=== PATIENT | female | born 1945 | race Caucasian/White ===

== ENCOUNTER → 2019-11-14 | Outpatient (CLI) | payer OTHER, BC ==
[~2019-11-14] MED LIST: ADULT LOW DOSE81 MG PO; BYSTOLIC2.5 MG OR; CALCIUM 600 +1 EAC5 PO; CENTRUM SILVER1 EAC1 PO; CIPROFLOXACIN500 M1 PO; FLECAINIDE ACET50 M1 PO; FOSAMAX 70 MG T70 M1 OR; LOVENOX SC; PRADAXA150 MG OR; PRADAXA150 MG PO; RESTASIS1 EACH OP; SYNTHROID100 MCG OR; SYNTHROID112 MCG PO; TIKOSYN.5 PO; [UNRECOGNIZED DRUG - CODE] PO
== END ==
LOC: SJCVC 13:43
DX: I11.9 Hypertensive heart disease without heart failure (principal); R94.31 Abnormal electrocardiogram [ECG] [EKG]; I48.0 Paroxysmal atrial fibrillation; E78.00 Pure hypercholesterolemia, unspecified; Z82.49 Family history of ischemic heart disease and other diseases of the circulatory system; Z79.899 Other long term (current) drug therapy; Z87.891 Personal history of nicotine dependence

== ENCOUNTER → 2019-11-21 | Outpatient (CLI) | payer OTHER, BC | LOC: SJCVCIMAG 07:16 | DX: R00.0 Tachycardia, unspecified (principal); I48.91 Unspecified atrial fibrillation; I10 Essential (primary) hypertension; E78.5 Hyperlipidemia, unspecified; Z87.891 Personal history of nicotine dependence; Z79.899 Other long term (current) drug therapy ==

== ENCOUNTER → 2019-12-02 | Outpatient (CLI) | payer OTHER, BC | LOC: SJCVCIMAG 08:03 | PROVIDERS: ATTEND Internal Medicine Cardiovascular Disease | DX: Z01.810 Encounter for preprocedural cardiovascular examination (principal); I08.8 Other rheumatic multiple valve diseases; R00.1 Bradycardia, unspecified; I48.91 Unspecified atrial fibrillation ==

== ENCOUNTER 2019-12-05 06:47 | Observation (INO) | payer OTHER, BC ==
[~2019-12-05] VITALS: Ht 177.8 cm; Wt 86.2 kg
[2019-12-05] VITALS (12 sets, daily range): BP systolic 124–152; BP diastolic 68–88
[2019-12-05 07:44] LABS: HEMATOCRIT 37.6 % (37.0-47.0); HEMOGLOBIN 12.5 gm/dL (12.0-15.0); MCH 30.3 pg (26.0-34.0); MCHC 33.1 g/dL (28.0-37.0); MCV 91.3 fL (80.0-100.0); RBC 4.12 mil/uL (4.20-5.00); RDW 13.6 % (10.5-14.5); WBC 4.3 thou/uL (4.0-11.0)
[2019-12-05 07:53] LABS: APTT 35.2 Seconds (24.5-32.8); INR 1.1; PROTIME 10.8 Seconds (9.3-11.4)
[2019-12-05 07:56] LABS: ALBUMIN 3.5 g/dL (3.4-5.0); CALCIUM 8.8 mg/dL (8.5-10.1); CREATININE 0.8 mg/dL (0.6-1.0); POTASSIUM 3.7 mmol/L (3.5-5.1); TOTAL BILIRUBIN 0.3 mg/dL (0.2-1.0); TOTAL PROTEIN 7.6 g/dL (6.4-8.2)
--- NOTE | 2019-12-05 17:05 | NUR ---
PT CARE ASSUMED APPROX 0700. ASSESSMENTS CHARTED. PT DENIES PAIN AND SOA. VSS. ON POST PROCEDURE BEDREST AT THIS TIME. AT BEDSIDE. BOTH PT AND SPOUSE DENY QUESTIONS OR CONCERNS REGARDING POC. DR PATIÑO WAS PAGED REGARDING PT'S RETURN TO AFIB APPROX 1440. NO CALLBACK AT THIS TIME. NO DISTRESS NOTED.
--- NOTE | 2019-12-05 18:31 | NUR ---
PT AMBULATED WITHOUT ISSUE. URINARY CATH REMOVED AT 1800 PER ORDER. REMOVED WITHOUT ISSUE. PT AWARE TO DRINK PLENY OF WATER AND TO NOTIFY NURSING WHEN FIRST VOIDS.
[2019-12-06 00:52] VITALS: BP 119/52
[2019-12-06 04:45] VITALS: BP 133/53
--- NOTE | 2019-12-06 07:29 | NUR ---
patient progressed rapidly in her care plan. vital signs stable with patient having no complaints of pain or nausea. cath site c/d/i with pedal pulses equal bilateral. up multiple times with assistance incident free. patient is anxious for discharge. continue plan of care.
[2019-12-06 08:10] VITALS: BP 113/55
[2019-12-06 08:14] VITALS: BP 133/53
--- NOTE | 2019-12-06 09:18 | NUR ---
PT CARE ASSUMED APPROX 0700. ASSESSMENT CHARTED. PT DENIES PAIN AND SOA. RIGHT GROIN POST CATH SITE C/D/I. NO HEMATOMA. PT UP WITH STEADY GAIT. DISCHARGING AT THIS TIME. DISCHARGE EDUCATION COMPLETED WITH PT AND DR. EDUCATION REINFORCED BY THIS NURSE. PT AND SPOUSE DENY QUESTIONS OR CONCERNS REGARDING POST HOSPITAL CARES. IV OUT, TELE OFF. PT ESCORTED OFF THE UNIT AT THIS TIME WITH NURSING STAFF.
--- NOTE | 2019-12-06 15:53 | D ---
[facility] [place] [address] DISCHARGE SUMMARY Name: NOLA CASAREZ Room #: 207-P [facility] M.Hever#: [id number] Admission: 12/05/19 Attend Phys: Carlo Sosa MD Discharge: 12/06/19 Date of : 43 Report #: [id number] THIS REPORT FOR: cc: David Buenrostro MD, Christopher B. MD Couchonnal, Luis F. MD ~ THIS REPORT FOR: //name// CC: David Sosa DISCHARGE DIAGNOSES: 1. Paroxysmal atrial fibrillation. 2. Atrial flutter. 3. Atrial tachycardia. HISTORY OF PRESENT ILLNESS: The patient is a 73-year-old female with a history of atrial fibrillation and atrial flutter, who underwent prior atrial flutter ablation by Dr. Mccabe several years ago and has been on Tikosyn, but has been having breakthrough episodes. She is here for ablation. She underwent successful AFib ablation yesterday with isolation of the pulmonary veins. An EP study was then performed and showed that she had an atrial tachycardia that was arising from the right atrial appendage, which was also successfully ablated. We also performed a repeat atrial flutter ablation as there appeared to be slight area of reconnection. HOSPITAL COURSE: The patient did well overnight, but she did have an episode of atrial fibrillation lasting about an hour yesterday that terminated on its own. Today, she denies any chest pain, shortness of breath, PND, orthopnea, presyncope or syncope. PHYSICAL EXAMINATION HEART: Regular rate and rhythm. LUNGS: Clear to auscultation bilaterally. ABDOMEN: Soft, nontender. GENITOURINARY: Groin showed no significant bruising or hematoma. Her telemetry showed she was in sinus rhythm. As such, she was deemed stable for discharge home. She will continue with her home dose of Tikosyn and her anticoagulation. Discharge instructions were reviewed and she will see me back in 3 months. <ELECTRONICALLY SIGNED> By: Carlo Sosa MD 12/06/19 1553 [id number] Carlo Sosa MD /nt
--- NOTE | 2019-12-06 15:53 | P ---
[facility] [place] [address] PROCEDURE REPORT Name: NOLA CASAREZ Room #: 207-P [facility] Antonella M.RHever#: [id number] Admission: 12/05/19 Attend Phys: Carlo Sosa MD Discharge: 12/06/19 Date of : 43 Report #: [id number] THIS REPORT FOR: cc: David Buenrostro MD, Christopher B. MD Couchonnal, Luis F. MD ~ CC: David Sosa DATE OF SERVICE: 12/05/2019 AFIB, A-FLUTTER, AND ATRIAL TACHYCARDIA ABLATION PREOPERATIVE DIAGNOSES: 1. Atrial fibrillation. 2. Atrial flutter. POSTOPERATIVE DIAGNOSES: 1. Atrial fibrillation. 2. Atrial flutter. 3. Supraventricular tachycardia due to an atrial tachycardia arising from the right atrial appendage. HISTORY: The patient is a 73-year-old female with history of AFib, atrial flutter, status post atrial flutter ablation by Dr. Mccabe in 2010, who has been on Tikosyn and Pradaxa with increased AFib burden over the past several months, here for AFib and atrial flutter ablation. PROCEDURES PERFORMED: 1. Atrial fibrillation ablation, CPT code 65609. 2. Program stimulation pacing after IV drug infusion, CPT code 10155. 3. 3D mapping, CPT code 17965. 4. Intracardiac echo, CPT code 12833. 5. Focal ablation for atrial flutter, CPT code 31982. 6. Second pathway ablated, CPT code 84503. DESCRIPTION OF PROCEDURE: The patient was brought to the EP laboratory in a fasting and unsedated state and prepped and draped in a sterile fashion. I injected lidocaine at the right groin and obtained access to the right femoral vein x 3, placing an 8, 9 and 7-[place] short sheath using the modified Seldinger technique. Next, under fluoroscopy, a Decapolar catheter was easily placed in the coronary sinus for left atrial pacing and recording, an ICE catheter was placed into the right atrium. 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 Using intracardiac ultrasound, I created a 3D geometry using [employer]. 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 [facility] [address] [place] [address] PROCEDURE REPORT Name: NOLA CASAREZ Room #: 207-P [facility] Antonella Lou#: [id number] Admission: 12/05/19 Attend Phys: Carlo Sosa MD Discharge: 12/06/19 Date of : 43 Report #: [id number] At baseline, the patient was in sinus rhythm. Next, the patient was systemically heparinized and a transseptal was performing an SL1 sheath and a Lindside needle. This was straightforward and I was able to advance the SL1 sheath into the left superior pulmonary vein and then I exchanged this for the cryo sheath. Next, we used a Lasso catheter to create a 3D geometry of the left atrium, which showed evidence of connection of the 4 pulmonary veins. I then started by isolating the pulmonary veins. The left superior pulmonary vein underwent a 4-minute, followed by 3-minute freeze, which then showed the vein was isolated, the left inferior vein underwent two 4-minute freezes and the vein successfully isolated within 30 seconds of the second freeze. The right superior pulmonary vein underwent a single 4-minute freeze as it isolated within 38 seconds and the right inferior pulmonary vein underwent 2 freezes, each of 3 minutes duration and the vein isolated during the first freeze within 50 seconds. Next, using the Lasso catheter, I created a repeat voltage map and this showed that we had created a wide circumferential ablation of the pulmonary veins. I pulled the cryo sheath to the right atrium and a basic EP study was performed. Atrial burst pacing was performed and AV block was noted at 320 milliseconds. Single atrial extrastimuli did not induce any SVT. Next, an isoproterenol infusion was started at 2 mcg per minute and AV block was noted at 280 milliseconds. Atrial ERP was noted at 210 milliseconds at a [address] cycle length and with aggressive atrial burst pacing at 270 milliseconds, the patient went into an atrial tachycardia that appeared to be right-sided in nature. 3D MAPPING AND ABLATION OF THE RIGHT-SIDED ATRIAL TACHYCARDIA: Using the Lasso catheter, I was able to map this atrial tachycardia into the right atrial appendage. Placing the Lasso catheter at this site would result in termination of the tachycardia. Trying to re-induce the atrial tachycardia, I did put the person in AFib and the patient required a 200 joule cardioversion with voodoo of sinus rhythm. We continued testing and I then exchanged for a [employer] ThermoCool ablation catheter and performed a more detailed mapping in the right atrial appendage and appeared that at the medial side of the appendage, there was a focal atrial tachycardia arising from this location. Catheter manipulation at this site would result in termination of the tachycardia. Prior to ablation, I performed high voltage pacing from the appendage and there was no phrenic nerve capture. Ablation was then performed at 35 ladd and this resulted in rapid bursts of atrial tachycardia. I ablated throughout the medial region and also at the base of the appendage. This did result in the patient going into atrial fibrillation and atrial flutter and the patient required cardioversion. We continued testing on isoproterenol and we could no longer induce this atrial tachycardia arising from the appendage. [facility] [address] [place] [address] PROCEDURE REPORT Name: NOLA CASAREZ [id number] Admission: 12/05/19 Attend Phys: Carlo Sosa MD Discharge: 12/06/19 Date of : 43 Report #: [id number] ATRIAL FLUTTER ABLATION: Given that the patient had prior A-flutter ablation, we remapped the prior ablation site and there appeared to be a gap within lesion set. I performed additional ablation at 6 o'clock along the cavotricuspid isthmus and post-ablation, there was now evidence of bidirectional block with a transisthmus conduction time of 195 milliseconds. As such, we continued performing testing post-ablation and with aggressive atrial burst pacing down to 270 milliseconds, I could no longer induce AFib, atrial flutter or atrial tachycardia. As such, the procedure was concluded. Post-ablation, the patient remained in sinus rhythm with a sinus cycle length of 805 milliseconds, IL interval 170 milliseconds, QRS duration 80 milliseconds, QT interval 470 milliseconds. Using intracardiac ultrasound, I verified there was no pericardial effusion and then the patient received systemic protamine and once ACT was within acceptable range, catheters and sheaths were pulled and hemostasis was obtained. The patient awoke neurologically and hemodynamically intact. No complications and no significant bleeding. CONCLUSIONS: 1. Successful AFib ablation with wide circumferential ablation of the pulmonary veins. 2. Successful ablation of a focal atrial tachycardia arising from the right atrial appendage. 3. Successful atrial flutter ablation with evidence of bidirectional block. 4. No other inducible arrhythmias on or off isoproterenol. <ELECTRONICALLY SIGNED> By: Carlo Sosa MD 12/06/19 1553 1215 1405 Carlo Sosa MD /nt
--- NOTE | 2019-12-07 11:45 | EKG ---
[facility] [place] [address] ELECTROCARDIOGRAM REPORT Name: NOLA CASAREZ Room #: 207-[facility] M.R.#: [id number] Admission: 12/05/19 Attend Phys: Carlo Sosa MD Discharge: 12/06/19 Date of : 43 Report #: [id number] THIS REPORT FOR: cc: David Buenrostro MD, Christopher B. MD Couchonnal,Carlo lAejandra MD ~ THIS REPORT FOR: //name// [facility] Test Date: 2019-12-05 Test Time: 15:55:39 Pat Name: NOLA CASAREZ Department: Room: 207 P Gender: F [employer]: FRANCESCO : 1945 Requested By: Carlo Sosa Order Number: [id number] MD: Carlo Sosa Measurements Intervals Smith Rate: 119 P: AR: QRS: 37 QRSD: 67 T: 255 QT: 293 QTc: 413 Interpretive Statements Atrial fibrillation Anteroseptal infarct, old Baseline wander in lead(s) V6 Compared to ECG 02/20/2011 11:07:06 Electronically Signed On 12-07-2019 11:45:05 CDT by Carlo Sosa [email or web address] <ELECTRONICALLY SIGNED> By: Carlo Sosa MD 12/07/19 1145 1555 1555 Carlo Sosa MD /EPI
== END 2019-12-06 09:25 | disposition home or self-care (01) ==
LOC: CATH → 2N 13:09 → CATH 13:18 → 2N 12-06 09:25
PROVIDERS: ADMIT Internal Medicine Cardiovascular Disease; ATTEND Internal Medicine Cardiovascular Disease
DX: I48.0 Paroxysmal atrial fibrillation (principal); I48.92 Unspecified atrial flutter; I47.1 Supraventricular tachycardia
CPT/HCPCS: 62110; 62900; 70005

== ENCOUNTER → 2019-12-10 | Outpatient (CLI) | payer OTHER, BC | LOC: SJCVC 09:01 | PROVIDERS: ATTEND Internal Medicine Cardiovascular Disease | DX: I48.91 Unspecified atrial fibrillation (principal); I10 Essential (primary) hypertension; G47.33 Obstructive sleep apnea (adult) (pediatric); E78.5 Hyperlipidemia, unspecified; E78.00 Pure hypercholesterolemia, unspecified; Z79.899 Other long term (current) drug therapy; Z82.49 Family history of ischemic heart disease and other diseases of the circulatory system; Z87.891 Personal history of nicotine dependence ==

== ENCOUNTER → 2020-03-05 | Outpatient (CLI) | payer OTHER, BC | LOC: SJCVC 17:13 | PROVIDERS: ATTEND Nurse Practitioner | DX: I48.91 Unspecified atrial fibrillation (principal); I10 Essential (primary) hypertension; G47.33 Obstructive sleep apnea (adult) (pediatric); E78.5 Hyperlipidemia, unspecified; E78.00 Pure hypercholesterolemia, unspecified; R94.31 Abnormal electrocardiogram [ECG] [EKG]; Z79.01 Long term (current) use of anticoagulants; Z79.899 Other long term (current) drug therapy; Z90.49 Acquired absence of other specified parts of digestive tract; Z90.09 Acquired absence of other part of head and neck; Z82.49 Family history of ischemic heart disease and other diseases of the circulatory system; Z82.3 Family history of stroke; Z87.891 Personal history of nicotine dependence ==

== ENCOUNTER → 2020-05-18 | Outpatient (CLI) | payer OTHER, BC | LOC: SJCVC 13:32 | PROVIDERS: ATTEND Internal Medicine | DX: R94.31 Abnormal electrocardiogram [ECG] [EKG] (principal); I48.0 Paroxysmal atrial fibrillation; E78.5 Hyperlipidemia, unspecified; G47.33 Obstructive sleep apnea (adult) (pediatric); Z79.01 Long term (current) use of anticoagulants ==

== ENCOUNTER → 2020-06-09 | Outpatient (CLI) | payer OTHER, BC | LOC: SJCVC 11:02 | PROVIDERS: ATTEND Internal Medicine Cardiovascular Disease | DX: I48.91 Unspecified atrial fibrillation (principal); I10 Essential (primary) hypertension; E78.00 Pure hypercholesterolemia, unspecified; Z79.899 Other long term (current) drug therapy; Z87.891 Personal history of nicotine dependence ==

== ENCOUNTER → 2020-11-26 | Outpatient (CLI) | payer OTHER, BC | LOC: SJCVC 14:34 | PROVIDERS: ATTEND Internal Medicine | DX: R94.31 Abnormal electrocardiogram [ECG] [EKG] (principal); I48.0 Paroxysmal atrial fibrillation; E78.5 Hyperlipidemia, unspecified; I10 Essential (primary) hypertension; G47.33 Obstructive sleep apnea (adult) (pediatric); E78.00 Pure hypercholesterolemia, unspecified; Z90.49 Acquired absence of other specified parts of digestive tract; Z79.01 Long term (current) use of anticoagulants; Z79.899 Other long term (current) drug therapy; Z87.891 Personal history of nicotine dependence; Z82.49 Family history of ischemic heart disease and other diseases of the circulatory system ==

== ENCOUNTER → 2021-06-03 | Outpatient (CLI) | payer OTHER, BC | LOC: SJCVC 13:31 | PROVIDERS: ATTEND Internal Medicine | DX: R94.31 Abnormal electrocardiogram [ECG] [EKG] (principal); I11.9 Hypertensive heart disease without heart failure; I48.0 Paroxysmal atrial fibrillation; E78.5 Hyperlipidemia, unspecified; G47.33 Obstructive sleep apnea (adult) (pediatric); Z79.01 Long term (current) use of anticoagulants; Z87.891 Personal history of nicotine dependence; Z72.89 Other problems related to lifestyle; Z79.899 Other long term (current) drug therapy; E78.00 Pure hypercholesterolemia, unspecified; Z82.49 Family history of ischemic heart disease and other diseases of the circulatory system ==

== ENCOUNTER → 2021-06-23 | Outpatient (CLI) | payer OTHER, BC | LOC: SJCVC 14:29 | PROVIDERS: ATTEND Internal Medicine Cardiovascular Disease | DX: R94.31 Abnormal electrocardiogram [ECG] [EKG] (principal); I48.0 Paroxysmal atrial fibrillation; I10 Essential (primary) hypertension; G47.33 Obstructive sleep apnea (adult) (pediatric); E78.00 Pure hypercholesterolemia, unspecified; Z79.899 Other long term (current) drug therapy; Z87.891 Personal history of nicotine dependence; Z72.89 Other problems related to lifestyle; Z82.49 Family history of ischemic heart disease and other diseases of the circulatory system ==